=== PATIENT | female | born 1995 | race Caucasian/White ===

== ENCOUNTER 2019-04-07 07:45 | Inpatient (IN) | payer OTHER ==
[2019-04-07] MEDS ORDERED: ELECTROLYTE-148 SOLN 500 ML IV SCH (08:19)
[2019-04-07] MEDS ORDERED: CITRIC ACID/SODIUM CITRATE 30 ML UNIT-DOSE CUP PO ONE ×2 (08:19→09:44)
[2019-04-07] MEDS ORDERED: ELECTROLYTE-148 SOLN 500 ML IV ONE (09:44)
[2019-04-07] MEDS ORDERED: ELECTROLYTE-148 SOLN 1,000 ML IV SCH (09:45)
[2019-04-07 10:17] VITALS: BMI 25.0
--- NOTE | 2019-04-07 10:59 | HP ---
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: Alzheimer's, CVA, Dementia, Migraine, Multiple Sclerosis, Peripheral Neuropathy, Parkinson's, Seizure, Syncope, TIA, Vertigo, Other Cardiovascular: No: AFIB, Aneurysm, Aortic Insufficiency, Aortic Stenosis, CAD, CHF, Deep Vein Thrombosis, HTN, Hyperlipdemia, AL, Mitral Insufficiency, Mitral Stenosis, Murmur, Pulmonary Hypertension, Other Pulmonary: No: Asthma, Bronchitis, Cancer, COPD, O2 Dependent, Pneumonia, Previously Intubated, Pulmonary Embolus, Pulmonary Fibrosis, Sleep Apnea, Other Gastrointestinal: No: Ascites, Cancer, Constipation, Crohn's Disease, Diverticulitis, Diverticulosis, Esophageal Varices, Gastritis, GERD, GI Bleed, Hemorrhoids, Hiatal Hernia, Inflamatory Bowel Disease, Irritable Bowel Disease, Pancreatitis, Peptic Ulcer Disease, Ulcerative Colitis, Other Hepatobiliary: No: Cirrhosis, Cholelithiasis, Cholecystitis, Choledocholithiasis , Hepatitis A, Hepatitis B, Hepatitis C, Other Renal/: No: Renal Failure, Renal Inusuff, BPH, Cancer, Hematuria, Hemodialysis , Neurogenic Bladder, Renal Calculi, UTI, Other Reproductive: No: Ectopic , Endometriosis, Fibroids, PID, Polycystic Ovary Syndrome, Postmenopausal, Other ...: 2 ...Para: 1 ...Term: 1 ...LMP: 07/08/18 ... Weeks Gestation by Dates: 38.1 ...EDC by Dates: 04/16/19 ...EDC by Sono: 04/10/19 Heme/Onc: No: Anemia, B12 Deficiency, Bleeding Disorder, Cancer, Current Chemotherapy, Current Radiation Therapy, Hemochromatosis, Hypercoaguable State, Myeloproliferative Synd, Sickle Cell Disease, Sickle Cell Trait, Thrombocytopenia, Other Infectious Disease: No: AIDS, C-Diff, Herpes Zoster, HIV, MRSA, STD's, Tuberculosis, VREF, Other Psych: No: Addictions, Anxiety, Bipolar, Depression, Panic, Psychosis, Schizophrenia, Other Musculoskeletal: No: Bursitis, Chronic low back pain, Hemiparesis, Hemiplegia, Osteoarthritis, Paraplegia, Other Rheumatology: No: Fibromyalgia, Gout, Lupus, Rheumatoid Arthritis, Sarcoidosis, Vasculitis, Other ENT: No: Allergic Rhinitis, Sinusitis, Other Endocrine: No: Boaz's Disease, Garrett's Disease, Diabetes Insipidus, Diabetes Mellitus, Hyperparathyroidism, Hyperthyroidism, Hypothyroidism, Osteopenia, SIADH, Other Dermatology: No: Basal Cell, Cellulitis, Eczema, Melanoma, Psoriasis, Squamous Cell, Other - Past Surgical History Past Surgical History: Yes: Appendectomy, , Hernia Repair (umbilical) Hx Myomectomy: No Hx Transabdominal Cerclage: No - Smoking History Smoking history: Never smoked Have you smoked in the past 12 months: No - Alcohol/Substance Use Hx Alcohol Use: No Home Medications - Allergies Allergies/Adverse Reactions: Allergies Allergy/AdvReac Type Severity Reaction Status Date / Time No Known Allergies Allergy Verified 04/07/19 08:41 - Home Medications Home Medications: Ambulatory Orders Pnv No.95/Ferrous Fum/Folic AC [ Formula] 1 each PO DAILY 04/07/19 Family Medical History Family History: Unremarkable Review of Systems - Review of Systems Constitutional: denies: No Symptoms, Chills, Diaphoresis, Fever, Lethargy, Loss of Appetite, Malaise, Night Sweats, Unintentional Wgt. Loss, Weakness, Other Eyes: denies: No Symptoms, Blind Spots, Blurred Vision, Double Vision, Eye Pain , Floaters, Photophobia, Recent Change in Vision, Other HENT: denies: No Symptoms, Difficult Swallowing, Ear Discharge, Ear Pain, Epistaxis, Gingival Bleeding, Hearing Loss, Mouth Swelling, Nasal Congestion, Ocular Prosthesis, Throat Pain, Toothache, Ringing in Ears, Other Neck: denies: No Symptoms, Decreased ROM, Lumps, Pain on Movement, Stiffness, Swollen Glands, Tenderness, Other Cardiovascular: denies: No Symptoms, Chest Pain, Edema, Palpitations, Shortness of Breath, Other Respiratory: denies: No Symptoms, Cough, Exercise Intolerance, Hemoptysis, Orthopnea, PND, Snoring, SOB, SOB on Exertion, Wheezing, Other Gastrointestinal: denies: No Symptoms, Abdominal Pain, Bloating, Constipation, Diarrhea, Dysphagia, Indigestion, Melena, Nausea, Rectal Bleeding, Vomiting, Vomiting Blood, Other Genitourinary: denies: No Symptoms, Burning, Discharge, Dysuria, Flank Pain, Frequency, Hematuria, Incontinence, Lesions, Menses, Pain, Testicular Mass, Testicular Pain, Testicular Swelling, Urgency, Vaginal Bleeding, Other Breasts: denies: No Symptoms Reported, See HPI, Breast Implants, Discharge from Nipple, Lumps, Pain, Skin Changes, Other Musculoskeletal: denies: No Symptoms, Back Pain, Crepitus, Decreased ROM, Extremity Pain, Joint Pain, Joint Swelling, Muscle Pain, Muscle Cramps, Muscle Weakness, Other Integumentary: denies: No Symptoms, Blister, Bruising, Change in Color, Eczema, Erythema, Incision, Lesions, Lump, Pallor, Pruritis, Rash, Wound, Other Neurological: denies: No Symptoms, Change in LOC, Change in Speech, Confusion, Dizziness, Headache, Incoordination, Numbness, Parasthesia, Pre-Existing Deficit , Seizure, Syncope, Tremors, Unsteady Gait, Weakness, Other Endocrine: denies: No Symptoms, Excessive Sweating, Flushing, Increased Hunger, Increased Thirst, Intolerance to Cold, Intolerance to Heat, Unexplained Weight Gain, Unexplained Weight Loss, Other Psychiatric: denies: No Symptoms, Altered Sleep Pattern, Anxiety, Depression, Hallucinations, Panic, Paranoia, Suicidal, Other Physical Exam - Maternity Vital Signs: Vital Signs Temperature 97.9 F 04/07/19 08:30 Pulse Rate 63 04/07/19 08:30 Respiratory Rate 20 04/07/19 08:30 Blood Pressure 123/80 04/07/19 08:30 O2 Sat by Pulse Oximetry (%) Constitutional: Yes: Calm HENT: Yes: Atraumatic Neck: Yes: Supple Cardiovascular: Yes: Regular Rate and Rhythm - Abdominal Exam/OB Presentation: Vertex (Abd: soft, n/d, n/t, gravid, vertical scar incision , no incisional tenderness.) Contractions: Yes Regularity: Regular Intensity: Mild Monitor Mode: External Category: I Accelerations: Uniform Decelerations: None - Vaginal Exam/OB Speculum Exam: No (cervical exam as documented by nursing) Amniotic Membrane Status: Ruptured - Physical Exam Musculoskeletal: Yes: WNL Edema: Yes Integumentary: Yes: WNL Deep Tendon Reflex Grade: Normal +2 ...Motor Strength: WNL Psychiatric: Yes: Alert, Oriented Imaging - Results Ultrasound: Report Reviewed Assessment/Plan 23 y/o @ 39.1wks, PROM, reassuring status, scheduled RCD, H/O multiple abdominal surgeries with umbilical hernia repair following vertical laparotomy. Patient counseled regarding risks and complications of repeat CD. Patient agrees to LTCS due to previous abdominal surgical history. Informed consent obtained and all questions answered. -Proceed with CD
[2019-04-07] MEDS ORDERED: ePHEDrine SULFATE 50 MG/1 ML AMPULE ONE (12:56)
[2019-04-07] MEDS ORDERED: PHENYLEPHRINE HCL 10 MG/1 ML SINGLE DOSE VIAL ONE (12:56)
[2019-04-07] MEDS ORDERED: morphine SULFATE/PF 0.5 MG/ML (2cc Syringe - QUVA) ONE (12:56)
[2019-04-07] MEDS ORDERED: PROPOFOL 20 ML ONE (12:56)
[2019-04-07] MEDS ORDERED: SUCCINYLCHOLINE CHLORIDE 200 MG/10 ML SYRINGE ONE (12:56)
--- NOTE | 2019-04-07 14:24 | OP ---
Operative Note - Note: Operative Date: 04/07/19 ([id number]) Pre-Operative Diagnosis: previor CS, PROM Operation: PLTCS Findings: see note Post-Operative Diagnosis: Same as Pre-op Surgeon: Milton Rodríguez Second Operator: Shad Jackson Anesthesia: Spinal Estimated Blood Loss (mls): 700 Operative Report Dictated: Yes
[2019-04-07] MEDS: OXYTOCIN 20 UNITS in 0.9% NS 20 UNIT/1,000 ML INFUS.BAG IV SCH (15:45)
--- NOTE | 2019-04-07 16:46 | OP ---
DATE OF OPERATION: 04/07/2019 PREOPERATIVE DIAGNOSIS: A 23-year-old 2, para 1 at 39 weeks and 1 day gestation, prior section x1, history of multiple abdominal surgeries including umbilical hernia repair, premature rupture of membranes, reassuring status. POSTOPERATIVE DIAGNOSIS: A 23-year-old 2, para 1 at 39 weeks and 1 day gestation, prior section x1, history of multiple abdominal surgeries including umbilical hernia repair, premature rupture of membranes, reassuring status. PROCEDURE: Repeat low transverse section. SURGEON: Mario Fry MD STORE MERCHANDISER: MENDOZA Thakkar ANESTHESIA: Spinal. ESTIMATED BLOOD LOSS: 700. INTRAVENOUS FLUIDS: Per anesthesia. URINE: Clear. COMPLICATIONS: None. FINDINGS: Vertical skin and scar incision consistent with prior abdominal surgeries. A moderate amount of subcutaneous adipose tissue. Fascia was slightly thickened and adherent to the underlying rectus muscles. The rectus muscles were fused to each other in the midline. No parietal peritoneal visceral adhesions at the point of entry. The bladder was slightly adherent to the lower uterine segment. Infant in cephalic presentation. Clear amniotic fluid. Live, viable male. Uterus, and bilateral tubes and ovaries consistent with normal anatomy. Bladder dome and rectus muscle fascial interface was noted to be dry at the conclusion of the procedure. DESCRIPTION OF PROCEDURE: The patient was taken to the operating room where anesthesia was found to be adequate. She was then prepped and draped in a normal sterile fashion. Urinary Justin catheter was placed atraumatically. Appropriate time-out took place. Pfannenstiel skin incision was made with a scalpel and carried through underlying fascia with the Bovie. The fascia was incised in the midline and incision extended laterally with sharp dissection. The underlying rectus muscles were dissected off sharply. Rectus muscles were in the midline superiorly with sharp dissection. Sharp entry to the peritoneal cavity superiorly revealed no visceral adhesions. The incision was extended laterally with sharp and blunt dissection. Bladder blade was placed, and the lower uterine segment was noted to be slightly effaced. Lower uterine segment transverse incision was made with a scalpel and extended laterally with blunt dissection. Amniotomy carried out. Infant was delivered through a surgical incision with mild fundal pressure. No nuchal cord was present. Rest of the body delivered without difficulty. Umbilical cord was clamped and cut after delay. Sample blood was obtained. Placenta was delivered manually and intact. The uterus was exteriorized through the surgical incision and the intrauterine cavity was cleared of all clots and debris. Lower uterine segment incision was reapproximated with 1-0 Polysorb running, locked sutures. Excellent structure reapproximation with 1-layer suture. One additional stitch figure-of- eight stitch of the same suture at the left incisional corner took place to achieve excellent hemostasis. The uterus was internalized to the pelvic cavity, and the gutters were cleared of all clot and debris. Secondary inspection of the incision revealed excellent hemostasis once again. Bladder dome and rectus muscle fascial interface documented. Fascial incision reapproximated with Polysorb running, nonlocked sutures. Excellent structural reapproximation achieved and confirmed by digital palpation by the surgeon. Subcutaneous tissues were copiously irrigated. Bleeders neutralized with Bovie cautery, and subcutaneous tissues were reapproximated with 2-0 chromic. Skin incision was reapproximated with 3-0 Monocryl subcuticular stitches. Excellent reapproximation and hemostasis achieved. Patient tolerated the procedure well and is going to the recovery room in stable condition. Instrument count was reported as correct x2 by the staff. MARIO FRY MD [id number] MTDD
[2019-04-07] MEDS: IBUPROFEN 800 MG/8 ML IJ IVPB PRN (17:34)
[2019-04-08] MEDS: IBUPROFEN 800 MG/8 ML IJ IVPB PRN ×2 (06:09→13:39)
--- NOTE | 2019-04-08 08:00 | PN ---
Post Progress Note - Subjective Subjective: Patient is doing well, wood is out, no nausea nor vomiting, brest feeding. All questions naswered Post Day: 1 Type of Delivery: Repeat C/S Vital Signs: Vital Signs Temperature 99.6 F 04/08/19 05:24 Pulse Rate 86 04/08/19 05:24 Respiratory Rate 18 04/08/19 07:00 Blood Pressure 112/59 L 04/08/19 05:24 O2 Sat by Pulse Oximetry (%) 98 04/07/19 15:45 Breast Exam: Yes: Other (deferred) Uterus: Yes: Fundus Firm Incision: Yes: Dressing dry and intact, Sutures intact Abdomen/GI: Yes: Abdomen soft Lochia, amount: Moderate Extremities: Yes: Calves non-tender Activity: Other - Labs Labs: AM CBC pending Assessment/Plan POD # 1 in stable condition. PP/post-op precautions discussed. -Continue PP/post-op care -Encourage ambulation
[2019-04-08 08:25] LABS: BASO % 0.3 % (0-2.0); EOS % 0.5 % (0-4.5); HEMATOCRIT 26.9 % (32.4-45.2); HEMOGLOBIN 8.8 GM/dL (10.7-15.3); LYMPH % 8.1 % (8-40); MCH 28.2 pg (25.7-33.7); MCHC 32.9 g/dl (32.0-36.0); MEAN CELL VOLUME 85.8 fl (80-96); MEAN PLT VOLUME 7.6 fl (7.5-11.1); MONO % 3.8 % (3.8-10.2); NEUT % 87.3 % (42.8-82.8); PLATELET COUNT 317 K/MM3 (134-434); RBC 3.14 M/mm3 (3.60-5.2); RDW 15.7 % (11.6-15.6); WHITE BLOOD COUNT 11.1 K/mm3 (4.0-10.0)
[2019-04-08] MEDS ORDERED: DIPHTH,PERTUSS(ACELL),TET 0.5 ML DISP.SYRIN IM ONE (10:00)
--- NOTE | 2019-04-08 14:24 | PN ---
Progress Note (short form) - Note Progress Note: POD #1 s/p c/s under spinal anesthesia with intrathecal duramorph. Doing well, some pain but tolerable with current pain medications. going well , all questions answered.
[2019-04-08] MEDS ORDERED: BISACODYL 10 MG SUPP.RECT RC PRN (14:25)
[2019-04-08] MEDS: ELECTROLYTE-148 SOLN 1,000 ML IV SCH (19:21)
[2019-04-08] MEDS: OXYTOCIN 20 UNITS in 0.9% NS 20 UNIT/1,000 ML INFUS.BAG IV SCH (19:21)
[2019-04-08] MEDS: ACETAMINOPHEN 325 MG TABLET (FP) PO PRN (22:05)
[2019-04-08] MEDS: oxyCODONE HCL 5 MG TABLET PO PRN (22:06)
[2019-04-08] MEDS: IBUPROFEN 600 MG TABLET (FP) PO PRN (22:06)
[2019-04-08] MEDS: SIMETHICONE 80 MG TAB.CHEW (FP) PO PRN (22:06)
--- NOTE | 2019-04-09 07:44 | PN ---
Post Progress Note - Subjective Subjective: c/o pain scale 4/10 voiding without difficulty no c/o dizziness Post Day: 2 Type of Delivery: Repeat C/S Vital Signs: Vital Signs Temperature 98.1 F 04/08/19 22:00 Pulse Rate 75 04/08/19 22:00 Respiratory Rate 18 04/08/19 22:00 Blood Pressure 117/73 04/08/19 22:00 O2 Sat by Pulse Oximetry (%) 98 04/07/19 15:45 Breast Exam: Yes: Soft, Other (BF ). No: Engorged Uterus: Yes: Fundus Firm, Fundus below umbilicus, Non-tender Incision: Yes: Sutures intact. No: Redness, Oozing Abdomen/GI: Yes: Abdomen soft, Passing flatus (bm not done ), Tolerating PO ( diet). No: Abdominal Distention, Tender Lochia: Yes: Rubra Lochia, amount: Small Extremities: Yes: Calves non-tender. No: Edema Perineum: Yes: Intact Activity: Ambulating - Labs Labs: CBC WBC 11.1 K/mm3 (4.0-10.0) H 04/08/19 07:21 RBC 3.14 M/mm3 (3.60-5.2) L 04/08/19 07:21 Hgb 8.8 GM/dL (10.7-15.3) L 04/08/19 07:21 Hct 26.9 % (32.4-45.2) L D 04/08/19 07:21 MCV 85.8 fl (80-96) 04/08/19 07:21 MCH 28.2 pg (25.7-33.7) 04/08/19 07:21 MCHC 32.9 g/dl (32.0-36.0) 04/08/19 07:21 RDW 15.7 % (11.6-15.6) H 04/08/19 07:21 Plt Count 317 K/MM3 (134-434) 04/08/19 07:21 MPV 7.6 fl (7.5-11.1) 04/08/19 07:21 Absolute Neuts (auto) 9.7 K/mm3 (1.5-8.0) H 04/08/19 07:21 Neutrophils % 87.3 % (42.8-82.8) H 04/08/19 07:21 Lymphocytes % 8.1 % (8-40) D 04/08/19 07:21 Monocytes % 3.8 % (3.8-10.2) 04/08/19 07:21 Eosinophils % 0.5 % (0-4.5) D 04/08/19 07:21 Basophils % 0.3 % (0-2.0) 04/08/19 07:21 Nucleated RBC % 0 % (0-0) 04/08/19 07:21 Problem List - Problems (1) Status post section routine follow-up Code(s): Z39.2 - ENCOUNTER FOR ROUTINE FOLLOW-UP; Z98.891 - HISTORY OF UTERINE SCAR FROM PREVIOUS SURGERY Assessment/Plan Anemia post op c/s , hemodynamically stable plan : ct po care , encourage ambulation deep breathing & po fluid intake po iron & pnv
[2019-04-09] MEDS: oxyCODONE HCL 5 MG TABLET PO PRN ×2 (07:51→15:57)
[2019-04-09] MEDS: IBUPROFEN 600 MG TABLET (FP) PO PRN ×2 (07:54→15:57)
[2019-04-09] MEDS: SIMETHICONE 80 MG TAB.CHEW (FP) PO PRN ×2 (07:54→15:57)
[2019-04-09] MEDS: PRENATAL VITAMINS W/ FOLIC ACID TABLET (FP) PO SCH (09:06)
[2019-04-09] MEDS: FERROUS SO4 325 MG TABLET (FP) PO SCH ×2 (09:06→17:03)
[2019-04-10 08:14] LABS: BASO % 0.4 % (0-2.0); EOS % 4.2 % (0-4.5); HEMATOCRIT 26.5 % (32.4-45.2); LYMPH % 18.8 % (8-40); MCH 29.1 pg (25.7-33.7); MCHC 33.8 g/dl (32.0-36.0); MEAN CELL VOLUME 85.9 fl (80-96); MEAN PLT VOLUME 7.1 fl (7.5-11.1); MONO % 3.9 % (3.8-10.2); NEUT % 72.7 % (42.8-82.8); PLATELET COUNT 385 K/MM3 (134-434); RBC 3.08 M/mm3 (3.60-5.2); RDW 15.2 % (11.6-15.6); WHITE BLOOD COUNT 7.8 K/mm3 (4.0-10.0)
--- NOTE | 2019-04-10 08:41 | DS ---
Physical Examination Vital Signs: Vital Signs Temperature 97.9 F 04/09/19 22:00 Pulse Rate 70 04/09/19 22:00 Respiratory Rate 18 04/09/19 22:00 Blood Pressure 112/60 04/09/19 22:00 O2 Sat by Pulse Oximetry (%) 98 04/07/19 15:45 Constitutional: Yes: Well Nourished, No Distress, Calm Eyes: Yes: WNL, Conjunctiva Clear, EOM Intact HENT: Yes: WNL, Atraumatic, Normocephalic Neck: Yes: WNL, Supple, Trachea Midline Cardiovascular: Yes: WNL, Regular Rate and Rhythm Respiratory: Yes: WNL, Regular, CTA Bilaterally Gastrointestinal: Yes: WNL, Normal Bowel Sounds Musculoskeletal: Yes: WNL Extremities: Yes: WNL Edema: No Integumentary: Yes: WNL Neurological: Yes: WNL, Alert, Oriented ...Motor Strength: WNL Psychiatric: Yes: WNL Labs: CBC, BMP 04/10/19 07:56 Discharge Summary Problems reviewed: Yes Reason For Visit: C SECTION Current Active Problems Status post section routine follow-up (Acute) Procedures: Principal: Repeat Hospital Course: Patient presented for scheduled RLTCS She had an uncomplicated RLTCS She met all postoperative milestones She was discharged home in stable condition Condition: Stable - Instructions Diet, Activity, Other Instructions: Please return to regular diet as tolerated. Follow instructions as discussed with your MD. [facility] at [email or web address] for incision check within a week of discharge. Call your Doctor with any issues or concerns. Take medications as prescribed Referrals: Milton Rodríguez MD [Staff Physician] - Disposition: HOME - Home Medications Comprehensive Discharge Medication List: Ambulatory Orders Acetaminophen [Tylenol] 650 mg PO Q6H PRN #20 tablet 04/07/19 Ibuprofen 600 mg PO Q6H PRN #30 tablet 04/07/19 Oxycodone HCl 5 mg PO Q6H PRN #12 tablet MDD 5 04/07/19 Pnv No.95/Ferrous Fum/Folic AC [ Formula] 1 each PO DAILY 04/07/19
[2019-04-10] MEDS: FERROUS SO4 325 MG TABLET (FP) PO SCH (09:09)
[2019-04-10] MEDS: oxyCODONE HCL 5 MG TABLET PO PRN (09:10)
[2019-04-10] MEDS: PRENATAL VITAMINS W/ FOLIC ACID TABLET (FP) PO SCH (09:10)
[2019-04-10] MEDS: SIMETHICONE 80 MG TAB.CHEW (FP) PO PRN (09:10)
[2019-04-10] MEDS: ACETAMINOPHEN 325 MG TABLET (FP) PO PRN (09:10)
[2019-04-10 12:41] VITALS: BP 116/70; PULSE 78; TEMP 98.1
--- NOTE | 2019-04-14 18:31 | PATH ---
Surgical Pathology Report Patient Name: ROSALBA WEIR V. [facility]. Rec. 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 Electronically Signed Cinda Lloyd M.D. Gross Description The specimen is received fresh labeled placenta and is a 543 gram, 19.5 x 18.0 x 2.3 cm. placenta with attached membranes and umbilical cord. The attached membranes are sutherland, translucent with focal opacities and insert marginally. The umbilical cord measures 20 cm. in length and averages 1.4 cm. in diameter. The cord inserts eccentrically, 3 cm. to the nearest margin. No true knots or strictures are identified. Cut surface of the umbilical cord reveals 3 vessels. The surface is carrera-blue with minimal fibrin deposition and appropriate caliber vessels. The maternal surface is red-brown with focal defects. Sectioning reveals red-brown, spongy parenchyma. No lesions are identified. Vp Compliance sections are submitted in three cassettes as follows: 1- membrane rolls and umbilical cord; 2-3- full thickness sections of placenta. 04/11/2019 [facility]04/11/2019
== END 2019-04-10 12:40 | disposition home or self-care (01) | DRG 540 ==
LOC: JLDR 07:45 → J3W 15:50
PROVIDERS: ADMIT Student in an Organized Health Care Education/Training Program; ATTEND Student in an Organized Health Care Education/Training Program
PROC: 10D00Z1 Extraction of Products of Conception, Low, Open Approach (ICD-10-PCS; principal; 2019-04-07)
DX: O34.219 Maternal care for unspecified type scar from previous cesarean delivery (principal); O42.92 Full-term premature rupture of membranes, unspecified as to length of time between rupture and onset of labor; O90.81 Anemia of the puerperium; Z3A.39 39 weeks gestation of pregnancy; Z37.0 Single live birth
CPT/HCPCS: 36415; 85025; 88307-TC